=== PATIENT | female | born 1990 | race Two or more races ===

== ENCOUNTER 2021-11-24 14:03 | Emergency (ER) | payer OTHER ==
[~2021-11-24] VITALS: Ht 160 cm; Wt 149.7 kg
[2021-11-24] MEDS ORDERED: LEVO-T50 MCG (14:15)
[2021-11-24] MEDS ORDERED: ZYRTEC10 MG PO (14:15)
== END 2021-11-24 19:22 | disposition home or self-care (01) ==
LOC: ER 14:03
DX: R10.11 Right upper quadrant pain (principal)

== ENCOUNTER 2022-03-29 20:13 | Emergency (ER) | payer OTHER ==
[~2022-03-29] VITALS: Ht 167.6 cm; Wt 136.1 kg
[~2022-03-29 20:13] MED LIST: LEVO-T50 MCG; ZYRTEC10 MG PO
== END 2022-03-29 23:38 | disposition home or self-care (01) ==
LOC: ER 20:13
DX: U07.1 COVID-19 (principal); A49.3 Mycoplasma infection, unspecified site; Z91.013 Allergy to seafood

== ENCOUNTER 2024-11-28 08:37 | Outpatient (CLI) | payer OTHER | END 2024-11-28 08:38 | disposition home or self-care (01) | LOC: PRENATAL 08:37 | PROVIDERS: ATTEND Obstetrics & Gynecology Maternal & Fetal Medicine | DX: O36.80X0 Pregnancy with inconclusive fetal viability, not applicable or unspecified (principal); Z36.82 Encounter for antenatal screening for nuchal translucency; Z36.0 Encounter for antenatal screening for chromosomal anomalies; Z14.8 Genetic carrier of other disease; O99.280 Endocrine, nutritional and metabolic diseases complicating pregnancy, unspecified trimester; O99.210 Obesity complicating pregnancy, unspecified trimester; Z3A.14 14 weeks gestation of pregnancy ==

== ENCOUNTER 2024-12-16 10:40 | Outpatient (CLI) | payer OTHER | END 2024-12-16 10:41 | disposition home or self-care (01) | LOC: PRENATAL 10:40 | PROVIDERS: ATTEND Obstetrics & Gynecology Maternal & Fetal Medicine | DX: Z76.1 Encounter for health supervision and care of foundling (principal) ==

== ENCOUNTER 2025-01-13 09:41 | Outpatient (CLI) | payer OTHER ==
[~2025-01-13 09:41] MED LIST changes: +HUMULIN N100 UNIT/2 SUBCUTANEO; +INSULIN SYRING1 EA29 SUBCUTANEO
== END 2025-01-13 09:43 | disposition home or self-care (01) ==
LOC: PRENATAL 09:41
PROVIDERS: ATTEND Obstetrics & Gynecology Maternal & Fetal Medicine
DX: O44.00 Complete placenta previa NOS or without hemorrhage, unspecified trimester (principal); O99.210 Obesity complicating pregnancy, unspecified trimester; O99.280 Endocrine, nutritional and metabolic diseases complicating pregnancy, unspecified trimester; O10.019 Pre-existing essential hypertension complicating pregnancy, unspecified trimester; O24.419 Gestational diabetes mellitus in pregnancy, unspecified control; Z3A.21 21 weeks gestation of pregnancy

== ENCOUNTER → 2025-03-03 10:00 | Outpatient (CLI) | payer OTHER | END | disposition home or self-care (01) | LOC: PRENATAL 10:00 | PROVIDERS: ATTEND Obstetrics & Gynecology | DX: O26.849 Uterine size-date discrepancy, unspecified trimester (principal); O36.8199 Decreased fetal movements, unspecified trimester, other fetus; O99.210 Obesity complicating pregnancy, unspecified trimester; O99.280 Endocrine, nutritional and metabolic diseases complicating pregnancy, unspecified trimester; O10.019 Pre-existing essential hypertension complicating pregnancy, unspecified trimester; O24.419 Gestational diabetes mellitus in pregnancy, unspecified control; Z3A.29 29 weeks gestation of pregnancy ==

== ENCOUNTER → 2025-04-16 14:25 | Outpatient (CLI) | payer OTHER | END | disposition home or self-care (01) | LOC: PRENATAL 14:25 | PROVIDERS: ATTEND Obstetrics & Gynecology Maternal & Fetal Medicine | DX: O26.849 Uterine size-date discrepancy, unspecified trimester (principal); O36.8199 Decreased fetal movements, unspecified trimester, other fetus; O99.210 Obesity complicating pregnancy, unspecified trimester; O99.280 Endocrine, nutritional and metabolic diseases complicating pregnancy, unspecified trimester; O10.019 Pre-existing essential hypertension complicating pregnancy, unspecified trimester; O24.419 Gestational diabetes mellitus in pregnancy, unspecified control; Z3A.35 35 weeks gestation of pregnancy ==

== ENCOUNTER 2025-05-01 13:06 | Inpatient (IN) | payer OTHER ==
[~2025-05-01] VITALS: Ht 165.1 cm; Wt 2.7 kg
[2025-05-06] MEDS ORDERED: RINGERS SOLUTION,LACTATED 1,000 ML IV SCH (05:15)
[2025-05-06] MEDS ORDERED: AMPICILLIN SODIUM 2,000 MG VIAL IV ONE (05:15)
[2025-05-06 05:41] VITALS: BP 136/62
[2025-05-06 05:43] VITALS: BP 136/62
[2025-05-06] MEDS ORDERED: CHILDREN'S ASPI81 MG PO (07:21)
[2025-05-06] MEDS ORDERED: SYNTHROID137 MCG PO (07:21)
[2025-05-06] MEDS ORDERED: PRENATAL TABLE1 EAC1 PO (07:21)
[2025-05-06] MEDS ORDERED: LABETALOL HCL100 MG PO (07:22)
[2025-05-06] MEDS ORDERED: FOLIC ACID20 MG PO (07:22)
[2025-05-06 07:30] VITALS: BP 127/52
[2025-05-06 07:44] LABS: ALT/SGPT 21.0 U/L (12-78); AST/SGOT 20.0 U/L (15-37); BILIRUBIN TOTAL 0.32 mg/dL (0.3-1.2); BUN CREA RATIO 11.0 (7.0-25.0); CREATININE SERUM 0.47 mg/dL (0.55-1.02); GFR 153.56; GLOBULINA 3.4 G/DL (2.4-3.5); GLUCOSE FASTING 80.0 mg/dL (65-100); OSMOLALITY SERUM 277.0 MOSM/KG (275-295)
[2025-05-06 07:45] LABS: INR 0.96
[2025-05-06 07:45] LABS: URINE APPEARANCE Cloudy; URINE BILIRRUBIN Small (NEGATIVE); URINE BLOOD Small; URINE COLOR Dark Yellow; URINE GLUCOSE Negative (NEGATIVE); URINE LEUKOCYTE Trace; URINE NITRATE Negative; URINE PROTEIN >=1000 (NEGATIVE); URINE UROBILINOGEN 1.0 E.U./dl
[2025-05-06 07:49] LABS: URINE BACTERIA 6384.9 uL (0.0-1933); URINE CAST 3.95 uL (0.0-1.40); URINE EPITHELIAL CELLS 39.8 uL (0.0-38.8); URINE RBC 33.2 uL (0.0-20.8); URINE WBC 124.4 uL (0.0-23.2)
[2025-05-06 08:00] LABS: BASO % 0.3 % (0.1-1.2); EOS # 0.19 (0.04-0.54); EOS % 1.8 % (0.7-7.0); LYMPH # 1.65 (1.18-3.74); LYMPH % 15.5 % (19.3-53.1); MEAN PLATELET VOLUME 10.30 fl (9.4-12.4); MONO # 0.86 (0.24-0.82); MONO % 8.1 % (4.7-12.5); NEUT # 7.85 (1.56-6.13); NEUT % 73.9 % (34.0-71.1); RED CELL DISTRIBUTION WIDTH 14.6 % (11.6-14.4)
[2025-05-06 08:22] LABS: URINE KETONE 40 (NEGATIVE)
[2025-05-06] MEDS ORDERED: MISOPROSTOL 25 MCG/4 ML GEL.W.APPL VAG ONE (08:45)
[2025-05-06] MEDS ORDERED: AMPICILLIN SODIUM 1,000 MG VIAL IV SCH (09:00)
[2025-05-06 10:30] VITALS: BP 99/51
[2025-05-06] MEDS ORDERED: DEXTROSE 5 % IN WATER 250 ML IV ONE (11:00)
[2025-05-06] MEDS ORDERED: OXYTOCIN 20 UNITS/1000ML RL PIGGYBAG IV ONE (16:00)
[2025-05-06] MEDS ORDERED: ERYTHROMYCIN BASE OPHT 1GM EACH TUBE OP ONE (16:00)
[2025-05-06] MEDS ORDERED: MORPHINE SULFATE 4 MG/ML CARTRIDGE IV SCH (17:00)
[2025-05-06] MEDS ORDERED: MORPHINE SULFATE 4 MG/ML VIAL IV ONE (18:35)
[2025-05-06] MEDS ORDERED: KETOROLAC TROMETHAMINE 60 MG VIAL IM ONE (21:00)
[2025-05-06 21:43] LABS: BASO % 0.2 % (0.1-1.2); EOS # 0.03 (0.04-0.54); EOS % 0.2 % (0.7-7.0); LYMPH # 1.18 (1.18-3.74); LYMPH % 7.0 % (19.3-53.1); MEAN PLATELET VOLUME 10.00 fl (9.4-12.4); MONO # 0.82 (0.24-0.82); MONO % 4.9 % (4.7-12.5); NEUT # 14.77 (1.56-6.13); NEUT % 87.3 % (34.0-71.1); RED CELL DISTRIBUTION WIDTH 14.5 % (11.6-14.4)
[2025-05-06 22:20] VITALS: BP 138/74
[2025-05-07] VITALS: BP 100/66
[2025-05-07] MEDS ORDERED: OxyCODONE HCL 5 MG TABLET (ROXICODONE) PO SCH (05:00)
[2025-05-07] MEDS ORDERED: SIMETHICONE 125 MG CAPSULE PO SCH (08:00)
[2025-05-07] MEDS ORDERED: DOCUSATE SODIUM 100MG CAP PO SCH (08:00)
[2025-05-07] MEDS ORDERED: PNV,CALCIUM 72/IRON/FOLIC ACID 1 TAB TABLET PO SCH (08:00)
[2025-05-07 09:09] VITALS: BP 125/77
[2025-05-07 19:09] VITALS: BP 109/75
[2025-05-08 00:45] VITALS: BP 127/72
[2025-05-08 08:00] VITALS: BP 100/66
[2025-05-08 17:04] VITALS: BP 138/70
[2025-05-09 00:40] VITALS: BP 131/76
[2025-05-09 08:00] VITALS: BP 97/66
== END 2025-05-09 14:39 | disposition home or self-care (01) | DRG 787 ==
LOC: OB/GYN 05-05 12:45 → LDR 05-06 05:00 → OB/GYN 05-06 13:02 → O/R 05-06 14:05 → OB/GYN 05-06 17:18
PROVIDERS: ADMIT Obstetrics & Gynecology; ATTEND Obstetrics & Gynecology
PROC: 3E033VJ Introduction of Other Hormone into Peripheral Vein, Percutaneous Approach (ICD-10-PCS; 2025-05-06)
PROC: 3E0P7VZ Introduction of Hormone into Female Reproductive, Via Natural or Artificial Opening (ICD-10-PCS; 2025-05-06)
PROC: 4A1HXCZ Monitoring of Products of Conception, Cardiac Rate, External Approach (ICD-10-PCS; 2025-05-06)
PROC: 10D00Z1 Extraction of Products of Conception, Low, Open Approach (ICD-10-PCS; principal; 2025-05-06 16:15)
DX: O24.420 Gestational diabetes mellitus in childbirth, diet controlled (principal); N04.9 Nephrotic syndrome with unspecified morphologic changes; O75.89 Other specified complications of labor and delivery; O32.1XX0 Maternal care for breech presentation, not applicable or unspecified; Z3A.37 37 weeks gestation of pregnancy; Z37.0 Single live birth